=== PATIENT | female | born 1960 | race Caucasian/White ===

== ENCOUNTER 2018-07-03 02:05 | Inpatient (IN) | payer OTHER ==
[2018-07-03] VITALS (7 sets, daily range): BP systolic 110–220; BP diastolic 60–82
[~2018-07-03] VITALS: Ht 157.5 cm; Wt 96.2 kg
[~2018-07-03 02:05] MED LIST: ATORVASTATIN CA40 M1 PO; DEXILANT60 M1 PO; GABAPENTIN300 M2 PO; LISINOPRIL10 M1 PO; TEGRETOL200 M1 PO
--- NOTE | 2018-07-03 11:35 | Operative Report ---
Operative/Inv Procedure Report Surgery Date: 07/03/18 Name of Procedure: L4-5 exploration of fusion L4-5 posterior lateral fusion L4-5 removal of hardware L4-5 placement of nonsegmental instrumentation [place] Stokes pedicle screws L4-5 right-sided discectomy for interbody fusion Use of autograft use of allograft Use of Stealth navigation Pre-Operative Diagnosis: L4-5 pseudoarthrosis Post-Operative Diagnosis: Same Estimated Blood Loss: 400 Surgeon/Swahili Teacher: Chuy Soliman MD,Heather Aviles Anesthesia: general endotracheal tube Operative/Procedure Note Note: After the successful administration of general endotracheal anesthesia all lines tubes and monitors were placed per anesthesia team. The patient was positioned prone on the Donald table with all pressure points padded. The old paramedian incisions were inspected. The patient was prepped and draped in usual standard fashion. 10 cc of lidocaine with epinephrine was infiltrated in the subcutaneous tissues. #10 blade was used to incise the skin over the spinous process of L4 and L5. The Bovie was used to dissect down to the thoracolumbar fascia. A subperiosteal dissection was carried out exposing the spinous process lamina of L4 and L5. The hardware was encountered laterally identified and swept off of all soft tissue. We used the universal removal tools to remove the set screws the rods and the screws of L4 and L5. The patient had 6.5 x 40 mm screws at L4 and 6.5 x 35 mm screws at L5. The holes were palpated she was adequate bone circumferentially. On the right L5 screw the screw was very loose and came out very easily. We then exposed and decorticated transverse processes of L4 and L5. There was no arthrodesis present. On the right-hand side we then performed hemilamina ostectomy and foraminotomies exposing the lateral border of the thecal sac and the traversing L5 nerve root. We tracked the neural elements medially into the decision of 11 blade and performed a partial discectomy to palpate the cage across midline incision was made not to try in place a secondary cage. We prepped the endplates with marcelo and curettes and packed the interspace with infuse sponge. We then placed 7.5 x 45 mm screws at L4 and 7.5 x 35 mm screws at L4-5. All screws had good purchase. We brought the O arm in for confirmatory spin all hardware was in excellent position. The screws stimulated above threshold. We then placed 2 precontoured 45 mm rods after the posterolateral elements were prepped and packed with morselized autograft taken from the decompression and the facet joints as well as infuse soaked sponges and vitoss soaked with bone marrow aspirate taken from the right iliac crest. Compression was provided across the disc space with the in-line compression and screws were tightened down the torque limiting truck driver flatbed. The wound was copiously irrigated and hemostasis obtained. 1 g of vancomycin powder was infiltrated in to the soft tissues the wound was then closed in layers. Using 0 Vicryl for the muscle fascia. 2-0 Vicryl for the deep dermis. The skin was closed with agustin. Of note the separate stab incision Hemovac drain was left in place subfascial. 20 cc of Exparel was in between the muscles and soft tissues and closing. A dry sterile dressing was applied. The patient was taken to recovery in stable condition. At the end the case all needle counts sponge was correct.
--- NOTE | 2018-07-03 14:32 | PN- Neurosurgical ---
Subjective Subjective: Awake, alert No complaints, pain is well controlled at this time, no nausea Tolerating liquids so far Has not been oob Objective Vital Signs and I&Os VSS, afebrile Physical Exam: General: alert and oriented times three Chest: clear anteriorly bilaterally, RRR Abd: soft, good bs Ext: warm, no edema, normosensate all 4 extremities with good 5/5 JENNIFER all 4 ext Wd: dressed, dry, drain in place Current Medications: Current Medications Sig/Amanda Start time Last Medication Dose Route Stop Time Status Admin Atorvastatin Calcium 40 MG DAILY 07/04 900 UNVr PO Carbamazepine 200 MG DAILY 07/04 900 UNVr PO Fentanyl Citrate 0 .STK-MED ONE 07/03 0737 DC .ROUTE Hydromorphone HCl 0 .STK-MED ONE 07/03 1226 DC .ROUTE Hydromorphone HCl 50 MG Q24H PRN 07/03 1145 AC Sodium Chloride 45 ML IV Hydromorphone HCl 0 .STK-MED ONE 07/03 0739 DC .ROUTE Lisinopril 10 MG DAILY 07/04 900 UNVr PO Midazolam HCl 0 .STK-MED ONE 07/03 0738 DC .ROUTE Omeprazole 20 MG DAILY AC 07/03 1428 UNVr PO Vancomycin HCl 1,000 MG ONCE 07/03 0000 NR Sodium Chloride 250 ML IV 07/03 2359 Assessment/Plan Assessment/Plan 58yo female s/p revision L4-5 exploration of fusion L4-5 posterior lateral fusion L4-5 removal of hardware L4-5 placement of nonsegmental instrumentation [place] Stokes pedicle screws L4-5 right-sided discectomy for interbody fusion Use of autograft use of allograft Follow up drain output Vanco post op ALPS ambulate beginning today - WBAT brace while OOB at all times Pain management - COLOR BLENDER home meds Core Measures Venous Thromboembolism VTE Risk Factors Surgery No Mechanical VTE Prophylaxis d/t N/A MechProphylax Ordered No VTE Pharm Prophylaxis d/t Surgical Contraindication
--- NOTE | 2018-07-03 15:50 | RADIOLOGY REPORT ---
EXAMINATION: XR LUMBAR SPINE OR CLINICAL INDICATION: L4-L5 fusion COMPARISON: Lumbar spine CT 03/09/2017. TECHNIQUE/FINDINGS: Intraoperative CT was performed. FLUOROSCOPY TIME: 3.18 seconds. DLP: 686.32 mGy-cm Intraoperative CT images of the lumbar spine were obtained. See operative notes for procedural details. IMPRESSION: Administrative dictation for intraoperative CT and image archiving in PACS. Please refer to operative notes for details.
--- NOTE | 2018-07-03 17:45 | Operative Report ---
Operative/Inv Procedure Report Surgery Date: 07/03/18 Name of Procedure: Exploration and Revision L4 5 fusion with removal of previous globus instrumentation, right L4 5 discectomy and interbody fusion with infuse, nonsegmental posterior lateral arthrodesis with [place] Stokes pedicle screws and rods, local autograft, V toss, infuse, iliac crest bone marrow aspirate, O arm neuro navigation Pre-Operative Diagnosis: L4 5 pseudoarthrosis with intractable low back pain Post-Operative Diagnosis: Same Estimated Blood Loss: 50ml to 100ml Surgeon/Student Services Advisor: Janny CABRERA,Chuy Holland M.D. Anesthesia: general endotracheal tube Monitors: Neurophysiologic monitoring IV Fluids: 1300 mL crystalloid Implants: [place] Stokes pedicle screws and rods Urine Output: 175 mL via Molina Drains: Medium Hemovac Specimens: L4 5 disc material Complications: None Condition: Stable Operative Indication: Patient is a 58-year-old woman status post a previous L4 5 interbody and posterior lateral arthrodesis at outside institution with intractable axial low back pain. She has had follow-up imaging now several years following the original procedure which shows healing about the L5 pedicle screws and no evidence of interbody or posterior lateral arthrodesis consistent with pseudoarthrosis. The patient now presents, following failed conservative treatment, for exploration and revision of her L4 5 fusion. Operative/Procedure Note Note: Patient was taken to the operating room. After appropriate patient identification and surgical timeout, neurophysiologic monitoring leads were placed and baseline recordings were obtained. Patient underwent the smooth induction of general endotracheal anesthesia without incident. A Molina catheter was sterilely inserted. DVT prophylaxis was utilized throughout the case. Patient was given 1 g of IV vancomycin preoperative prophylaxis. At all tubes and lines secured, the patient was carefully turned to the prone position on the Donald frame taking care to ensure that all pressure points were well-padded. A bar region of the low back was widely prepped and draped usual sterile fashion using povidone iodine solution. A vertical midline skin incision was marked overlying the L4 5 interspace and infiltrated with local anesthetic. Skin incision was made with a 10 blade knife. Dissection was carried down through the subcutaneous tissue with the Bovie to the lumbodorsal fascia. The fascia was incised in the midline and a subperiosteal dissection lumbar paravertebral muscles was performed bilaterally exposure of the underlying spinous processes lamina and facets of L4 5 was completed. We extended the exposure laterally to expose the previous instrumentation including pedicle screws and rods at L4 5. The intertransverse posterior lateral fusion bed was explored and there was no evidence of any arthrodesis on either side. A few small noncontiguous calcified areas were noted on the patient's right without solid arthrodesis. After exposure, we proceeded with removal of the instrumentation after confirming a pseudoarthrosis. Patient previous head globus pedicle screws and rods. 3 globus resolve pedicle screws and a single globus creo screw screw in the right L5 location were explanted and passed off to the back table. The size of each screw was noted. All 4 pedicle screws had poor fixation with the right L5 screw being grossly loose. We next further exposed the transverse processes of L4 and L5 bilaterally and they were decorticated with a high-speed drill. We performed a laminotomy and medial facetectomy of the right L4 5 interspace FOR SUBSEQUENT ARTHRODESIS. LIGAMENTUM FLAVUM WAS STRIPPED EXPOSING UNDERLYING EPIDURAL FAT AND DURA OF THE THECAL SAC AND EXITING L5 ROOT. THE DURAL SAC WAS GENTLY RETRACTED MEDIALLY EXPOSING THE UNDERLYING L4 5 DISC SPACE FROM THE RIGHT. THE ANNULUS WAS COAGULATED AND INCISED IN A RECTANGULAR FASHION WITH AN 11 BLADE KNIFE AND DISCECTOMY WAS PERFORMED WITH STRAIGHT AND ANGLED CURETTES AND PITUITARY RONGEURS. WE WERE ABLE TO APPRECIATE THE PREVIOUS INTERBODY CAGE EXTENDING ACROSS THE MIDLINE. THE ENDPLATES OF L4 AND L5 WERE DECORTICATED AND 1/8 of a medium BMP sponge was placed in the disc space on the right as far anteriorly as possible. There was not enough room to safely place a second interbody cage. We then focused our attention on the posterior lateral arthrodesis. We upsized each of the prior screws. [employer] Stokes screw system was utilized. At L4, 7.5 x 45 mm screws were placed bilaterally through the holes and at L5, 7.5 x 35 mm screw was placed bilaterally. Each of the screws had excellent fixation with good endpoints. Once all 4 screws were in position, they were stimulated with thresholds greater than 30 mA at all locations. The O arm was then brought into play and a spin was obtained confirming excellent position of all the instrumentation. 10 mL of iliac crest bone marrow was harvested from the right iliac crest with a Jamshidi needle and added to 10 mL of V toss. The morcellated autograft from the decompression along with the V toss wrapped with infuse sponges were then tightly packed from the L4 to L5 transverse processes bilaterally. 45 mm rods were selected. They were gently lordosis then top loaded into the pedicle screws and locking caps placed. Gentle compression was placed across the screws and they were finally tightened with an antitorque device. The wound was copiously irrigated. A medium Hemovac drain was placed into the wound and secured to the skin with a 2-0 nylon suture. 1 g of IV vancomycin powder was placed overall the cut soft tissue and muscle surfaces so edges prior to wound closure. The deep muscle was reapproximated with interrupted 0 Vicryl suture. Lumbodorsal fascia was reapproximated with interrupted 0 Vicryl suture. The paraspinal muscle was infiltrated with 20 mL of long-acting local anesthetic. The skin was closed in layers with interrupted 2-0 Vicryl suture in the dermis and a staple closure on the skin. Wounds clean and dried. Bacitracin and a sterile occlusive dressing was placed. The patient was gently returned to the supine position, awakened extubated and taken to PACU in stable condition. She was noted to be moving all 4 extremities at the completion of the case. All sponge, needle, and injuring counts are correct at the completion of seizure 3. Neurophysiologic monitoring was stable throughout the case. Findings: Pseudoarthrosis L4 5 with hardware loosening Discharge Disposition: PACU
[2018-07-04] VITALS (8 sets, daily range): BP systolic 94–126; BP diastolic 64–76
--- NOTE | 2018-07-04 07:38 | PN- Neurosurgical ---
Subjective Subjective: Doing well. Pain well controlled. No complaints. Objective Vital Signs and I&Os Vital Signs Date Time Temp Pulse Resp B/P B/P Pulse O2 O2 Flow FiO2 Mean Ox Delivery Rate 07/04 0600 97.5 85 20 110/76 07/04 0558 97.5 85 20 110/76 95 Room Air 07/04 0400 98.4 93 20 104/70 07/04 0358 98.4 93 20 104/70 96 Room Air 07/04 0200 98.1 95 20 94/64 07/04 0014 98.6 95 20 94/64 95 Room Air 07/04 0000 98.6 95 20 94/64 07/03 2228 97.8 100 20 110/60 95 07/03 2200 97.8 100 20 220/60 07/03 2034 98.0 99 20 124/78 96 07/03 2000 97.8 100 20 124/78 07/03 1850 98.0 106 18 118/78 95 07/03 1610 97.7 96 18 122/82 92 07/03 1600 Room Air 07/03 1454 97.7 92 18 110/74 Intake & Output 07/04 0807/04 0000 07/03 1600 07/03 0807/03 0000 07/02 1600 Intake Total 640 840 Output Total 60 570 Balance 580 270 Intake, IV 400 600 Intake, Oral 240 240 Output, 60 170 Drainage Output, Urine 400 Patient 96.247 kg Weight Physical Exam: AF, VSS HV with 60cc last 8 hr neuro intact incision is c,d,i flat stokes out, voiding on own has not been OOB yet tolerating po RECHECKER - not using much using IS Current Medications: Current Medications Sig/Amanda Start time Last Medication Dose Route Stop Time Status Admin Acetaminophen 650 MG Q4 PRN 07/03 1445 AC PO Atorvastatin Calcium 40 MG DAILY 07/04 900 DC PO Atorvastatin Calcium 40 MG AT BEDTIME 07/03 2100 AC 07/03 PO 2047 Bisacodyl 10 MG DAILY NEEDED 07/03 1445 AC NV Carbamazepine 200 MG DAILY 07/04 900 DC PO Carbamazepine 200 MG AT BEDTIME 07/03 2100 AC 07/03 PO 2047 Diazepam 5 MG Q8P PRN 07/03 1445 AC PO Docusate Sodium 100 MG TID 07/03 2100 AC PO Fentanyl Citrate 0 .STK-MED ONE 07/03 0737 DC .ROUTE Gabapentin 300 MG TID 07/03 2119 AC 07/04 PO 0614 Heparin Sodium 5,000 UNIT Q8 07/03 2200 AC 07/04 (Porcine) SC 0614 Hydromorphone HCl 2 MG Q4-6 PRN PRN 07/03 1445 AC IV Hydromorphone HCl 0 .STK-MED ONE 07/03 1226 DC .ROUTE Hydromorphone HCl 50 MG Q24H PRN 07/03 1145 DC Sodium Chloride 45 ML IV Hydromorphone HCl 0 .STK-MED ONE 07/03 0739 DC .ROUTE Ketorolac 15 MG Q6 07/03 1800 AC 07/04 Tromethamine IV 0323 Lisinopril 10 MG DAILY 07/04 0900 DC PO Lisinopril 10 MG AT BEDTIME 07/03 2100 AC 07/03 PO 2048 Midazolam HCl 0 .STK-MED ONE 07/03 0738 DC .ROUTE Omeprazole 20 MG DAILY AC 07/03 1428 AC 07/04 PO 0615 Ondansetron HCl 4 MG Q6PRN PRN 07/03 1445 AC IV Oxycodone/ 2 TAB Q4P PRN 07/03 1445 AC Acetaminophen PO Senna 374 MG AT BEDTIME PRN 07/03 1445 AC PO Trimethobenzamide HCl 200 MG Q6P PRN 07/03 1445 AC IM Vancomycin HCl 1,000 MG Q12H 07/04 0500 AC 07/04 Sodium Chloride 250 ML IV 07/06 1701 0432 Vancomycin HCl 1,000 MG ONCE 07/03 0000 DC Sodium Chloride 250 ML IV 07/03 2359 Zolpidem Tartrate 2.5 MG AT BEDTIME 07/03 2100 AC PO Assessment/Plan Assessment/Plan Pt POD1 s/p revision L4/5 fusion and doing well. Plan: -OOB this am with brace -dc HV when 50cc or less per shift -vanco until drain out -DVT prophylaxis -home possibly later today -dc instructions discussed with pt in detail -fu with me 2 wks Core Measures Venous Thromboembolism VTE Risk Factors Surgery No Mechanical VTE Prophylaxis d/t N/A MechProphylax Ordered No VTE Pharm Prophylaxis d/t Surgical Contraindication Attending MD Review Statement Attending Statement Attending MD Statement: examined this patient, discuss w/resident/PA/WELDER OPERATOR, discussed w/nursing
--- NOTE | 2018-07-04 17:54 | Patient Discharge Instructions ---
Discharge Instructions General Discharge Information You were seen/treated for: failure of hardware You had these procedures: revision lumbar fusion Watch for these problems: temp>101.5, increased wound draiange/redness, increased pain Other wound care: keep wound clean and dry, judy sterile dressing daily Special Instructions: no bending, twisting, or lifting anything over 5 pounds Diet Continue normal diet: Yes Activity Activity Limited to: Weight bear as tolerated Other activity limits: may be oob with brace Acute Coronary Syndrome Inclusion Criteria At DC or during hospital stay patient has or had the following: ACS DIAGNOSIS No Discharge Core Measures Meds if any: Prescribed or Continued at Discharge Meds if any: NOT Prescribed or Continued at Discharge Congestive Heart Failure Inclusion Criteria At DC or during hospital stay patient has or had the following: CHF DIAGNOSIS No Discharge Core Measures Meds if any: Prescribed or Continued at Discharge Meds if any: NOT Prescribed or Continued at Discharge Cerebrovascular accident Inclusion Criteria At DC or during hospital stay patient has or had the following: CVA/TIA Diagnosis No Discharge Core Measures Meds if any: Prescribed or Continued at Discharge Meds if any: NOT Prescribed or Continued at Discharge Venous thromboembolism Inclusion Criteria VTE Diagnosis No VTE Type NONE VTE Confirmed by (Test) NONE Discharge Core Measures - Per Current guidelines, there needs to be overlap - treatment for the first 5 days of Warfarin therapy. - If discharged on Warfarin prior to 5 days of - overlap therapy, the patient will need to be - assessed for post discharge needs including - *Post discharge parental anticoagulation - *Warfarin and/or parental anticoagulation education - *Follow up date to check INR post discharge At least 5 days overlap therapy as Inpatient No Meds if any: Prescribed or Continued at Discharge Note: Overlap Therapy is Warfarin and Anticoagulant Meds if any: NOT Prescribed or Continued at Discharge
[2018-07-04] MEDS ORDERED: VALIUM5 M2 PO (18:18)
[2018-07-04] MEDS ORDERED: PERCOCET 5-3251 EACH PO (18:18)
== END 2018-07-04 19:35 | disposition home health service (06) | DRG 460 ==
LOC: SDA 02:05 → 2NA 02:05 → ENRESERV 12:28 → ENTRNSPT 13:48 → EDTRNSPT 13:49 → EDTRNSPTSTS 14:00 → EDTRNSPT 14:00 → 2NA 14:07 → CMPTRNSPT 14:16 → ENTRNSPT 07-04 19:08 → 2NA 07-04 19:35 → CMPTRNSPT 07-04 19:50
PROC: 3E0U0GB Introduction of Recombinant Bone Morphogenetic Protein into Joints, Open Approach (ICD-10-PCS; principal; 2018-07-03)
PROC: 0SP004Z Removal of Internal Fixation Device from Lumbar Vertebral Joint, Open Approach (ICD-10-PCS; principal; 2018-07-03)
PROC: 07DR3ZZ Extraction of Iliac Bone Marrow, Percutaneous Approach (ICD-10-PCS; principal; 2018-07-03)
PROC: 0SB20ZZ Excision of Lumbar Vertebral Disc, Open Approach (ICD-10-PCS; principal; 2018-07-03)
PROC: 0SG0071 Fusion of Lumbar Vertebral Joint with Autologous Tissue Substitute, Posterior Approach, Posterior Column, Open Approach (ICD-10-PCS; principal; 2018-07-03)
PROC: 0SG00K1 Fusion of Lumbar Vertebral Joint with Nonautologous Tissue Substitute, Posterior Approach, Posterior Column, Open Approach (ICD-10-PCS; principal; 2018-07-03)
DX: M96.0 Pseudarthrosis after fusion or arthrodesis (principal); G90.50 Complex regional pain syndrome I, unspecified; Y83.8 Other surgical procedures as the cause of abnormal reaction of the patient, or of later complication, without mention of misadventure at the time of the procedure; K21.9 Gastro-esophageal reflux disease without esophagitis; I10 Essential (primary) hypertension; G40.909 Epilepsy, unspecified, not intractable, without status epilepticus; K44.9 Diaphragmatic hernia without obstruction or gangrene; I71.4 Abdominal aortic aneurysm, without rupture
CPT/HCPCS: 2NAP; 36415; 76000; 87086; 97116-GO; 97161-GP; C1713; C9290; J1170; J1644; J3370; J3490; J7040